=== PATIENT | male | born 1995 | race Caucasian/White ===

== ENCOUNTER 2017-06-17 18:47 | Emergency (ER) | payer OTHER ==
[2017-06-17 20:56] LABS: BASOPHIL % 0.6 % (0-2); PLATELET COUNT 263 x10^3mcL (130-400); RED CELL DISTRIBUTION WIDTH 12.8 % (11.5-14.5)
[2017-06-17 20:59] LABS: CALCIUM 9.6 mg/dL (8.5-10.1); CHLORIDE SERUM 99 mmol/L (98-107); GFR1 > 60 mL/min; GLUCOSE SERUM 89 mg/dL (74-106); SODIUM SERUM 139 mmol/L (136-145)
[2017-06-17 21:26] LABS: microscopic required? NO
[2017-06-17 21:55] LABS: UA SPECIFIC GRAVITY 1.025 (1.005-1.035); urine erythrocyte NEGATIVE (NEGATIVE)
[2017-06-17 23:02] VITALS: BP 118/72
== END 2017-06-17 23:02 | disposition home or self-care (01) ==
LOC: ED 18:47
PROVIDERS: Emergency Medicine Emergency Medical Services
DX: K40.90 Unilateral inguinal hernia, without obstruction or gangrene, not specified as recurrent (principal)
CPT/HCPCS: 36415

== ENCOUNTER 2017-06-18 08:35 | Emergency (ER) | payer OTHER ==
[~2017-06-18] VITALS: Ht 175.3 cm; Wt 81.6 kg
[2017-06-18 11:54] VITALS: BP 122/64
== END 2017-06-18 11:54 | disposition home or self-care (01) ==
LOC: ED 08:35
DX: K40.90 Unilateral inguinal hernia, without obstruction or gangrene, not specified as recurrent (principal)
CPT/HCPCS: J1885

== ENCOUNTER 2020-12-09 10:01 | Emergency (ER) | payer OTHER ==
[~2020-12-09] VITALS: Ht 175.3 cm; Wt 84.1 kg
[2020-12-09 10:08] VITALS: Ht 175.3 cm; Wt 84.1 kg
[2020-12-09] MEDS ORDERED: IBU600 M2 PO (11:56)
[2020-12-09 12:10] VITALS: BP 119/53
== END 2020-12-09 12:10 | disposition home or self-care (01) ==
LOC: ED 10:01
DX: S92.424A Nondisplaced fracture of distal phalanx of right great toe, initial encounter for closed fracture (principal); W04.XXXA Fall while being carried or supported by other persons, initial encounter; Y93.89 Activity, other specified; Y92.89 Other specified places as the place of occurrence of the external cause; Y99.8 Other external cause status